=== PATIENT | female | born 1985 | race Caucasian/White ===

== ENCOUNTER 2018-05-27 08:29 | Day surgery (SDC) | payer MEDICAID ==
[2018-05-24 14:07] LABS: BASOPHILS # (AUTO) 0.1 X10'3 (0-0.2); BASOPHILS % (AUTO) 1.1 % (0-1); EOSINOPHILS # (AUTO) 0.4 X10'3 (0-0.9); EOSINOPHILS % (AUTO) 3.7 % (0-6); LYMPHOCYTES # (AUTO) 3.6 X10'3 (1.1-4.8); LYMPHOCYTES % (AUTO) 33.5 % (21-51); MEAN CORPUSCULAR HGB CONC 35.3 % (33.0-36.5); MEAN CORPUSCULAR VOLUME 90.6 FL (78-98); MEAN PLATELET VOLUME 7.7 FL (7.4-10.4); MONOCYTES # (AUTO) 0.7 X10'3 (0-0.9); MONOCYTES % (AUTO) 6.9 % (2-12); NEUTROPHILS # (AUTO) 5.9 X10'3 (1.8-7.7); NEUTROPHILS % (AUTO) 54.8 % (42-75); PRE OP HEMATOCRIT 44.8 % (35.0-45.0); PRE OP HEMOGLOBIN 15.8 g/dL (12.0-16.0); PRE OP PLATELET COUNT 309 X10'3 (140-440); RED BLOOD COUNT 4.95 X10'6 (4.20-5.60); RED CELL DISTRIBUTION WIDTH 13.9 % (11.5-14.5)
[2018-05-24 14:19] LABS: HEMOGLOBIN A1C 7.4 % (4.5-6.2)
[2018-05-24 14:26] LABS: ALBUMIN 4.3 G/DL (3.4-5.0); ALBUMIN/GLOBULIN RATIO 1.1 (1.1-1.5); ALKALINE PHOSPHATASE 64 IU/L (46-116); BLOOD UREA NITROGEN 10 MG/DL (7-18); BUN/CREATININE RATIO 12.5 (6.6-38.0); CALCIUM 9.7 MG/DL (8.5-10.1); CHLORIDE 100 MMOL/L (99-107); PRE OP ALT 42 U/L (30-65); PRE OP ANION GAP 11 (8-16); PRE OP AST 16 U/L (10-37); PRE OP BILIRUB, TOTAL 0.7 MG/DL (0.0-1.0); PRE OP POTASSIUM 3.9 MMOL/L (3.4-5.1); PRE OP SODIUM 138 MMOL/L (135-145); TOTAL CARBON DIOXIDE 27.2 MMOL/L (24-32); TOTAL PROTEIN 8.2 G/DL (6.4-8.2); eGFR 83 ML/MIN
[2018-05-24 14:27] LABS: PRE OP GLUCOSE 216 MG/DL (70-104)
[2018-05-24 14:38] LABS: HCG SERUM QL NEGATIVE
[~2018-05-27] VITALS: Ht 162.6 cm; Wt 91.2 kg
[2018-05-27] VITALS (10 sets, daily range): BP systolic 116–148; BP diastolic 76–88
[~2018-05-27 08:29] MED LIST: BUPIVAcaine/PF 2.5mg/ml (0.25%) 10ml vial ONE; Cefazolin 2GM/50ML dext iso,osmotic IVPB IV ONE; INSU100C10 SQ; NPH,100V SQ; epiNEPHrine 1 mg/ml inj ONE; famotidine 20mg tablet PO ONE; ringers solution, lacted 1,000 ML IV SCH
[2018-05-27] MEDS ORDERED: INSU100I8 SQ (09:07)
[2018-05-27] MEDS ORDERED: INSU100V11 SQ (09:09)
[2018-05-27] MEDS ORDERED: sevoflurane 250ml liquid IH ONE (09:59)
[2018-05-27] MEDS ORDERED: dexamethasone sod phosphate 10mg/ml inj ONE (09:59)
[2018-05-27] MEDS ORDERED: fentaNYL/PF 50MCG/1 ML 2ML syringe ONE (10:00)
[2018-05-27] MEDS ORDERED: midazolam 2 mg/2 ml injection ONE (10:00)
[2018-05-27] MEDS ORDERED: propofol inj 20 ML IV ONE (10:03)
[2018-05-27] MEDS ORDERED: rocuronium 10mg/ml inj IV ONE (10:03)
[2018-05-27] MEDS ORDERED: ondansetron/PF 4mg/2ml inj ONE (10:26)
[2018-05-27] MEDS ORDERED: neostigmine methylsulfate 1 MG/ML 10ml vial ONE (10:33)
[2018-05-27] MEDS ORDERED: glycopyrrolate 0.2mg/ml inj ONE (10:46)
[2018-05-27] MEDS ORDERED: ringers solution, lacted 1,000 ML IV SCH (10:56)
[2018-05-27] MEDS ORDERED: ondansetron/PF 4mg/2ml inj IV PRN (11:00)
[2018-05-27] MEDS ORDERED: proCHLORperazine 10 MG/2 ml inj IV PRN (11:00)
[2018-05-27] MEDS ORDERED: meperidine/PF 25mg/ml syringe IV PRN ×2 (11:00)
[2018-05-27] MEDS ORDERED: morphine 4 MG/ML inj SYRINge IV PRN ×2 (11:00)
[2018-05-27] MEDS: meperidine/PF 25mg/ml syringe IV PRN ×2 (11:20→11:31)
== END 2018-05-27 12:12 | disposition home or self-care (01) ==
LOC: PAS 08:29
PROVIDERS: ATTEND Obstetrics & Gynecology
DX: Z30.2 Encounter for sterilization (principal); E11.9 Type 2 diabetes mellitus without complications; E66.9 Obesity, unspecified; Z79.4 Long term (current) use of insulin; Z68.34 Body mass index [BMI] 34.0-34.9, adult; Z82.49 Family history of ischemic heart disease and other diseases of the circulatory system; Z95.810 Presence of automatic (implantable) cardiac defibrillator; Z79.899 Other long term (current) drug therapy; Z98.890 Other specified postprocedural states
CPT/HCPCS: 36415; 58670; 80053; 82948; 83036; 84703; 85025; 93005; A6258; A6402; J0171; J0690; J1100; J2175; J2250; J2405; J2704; J2710; J3010; J3490; J7120; A7000